=== PATIENT | female | born 1950 | race Caucasian/White ===

== ENCOUNTER 2020-09-01 09:25 | Outpatient (CLI) | payer MEDICARE, OTHER ==
[~2020-09-01] VITALS: Ht 167.6 cm; Wt 120.0 kg
[~2020-09-01 09:25] MED LIST: NO HOME MEDS
[2020-09-01] MEDS ORDERED: nitroGLYCERIN 0.4mg SUBLingual tab SL PRN (10:30)
[2020-09-01] MEDS ORDERED: aminophylline 250mg/10ml inj. IV PRN (10:30)
[2020-09-01] MEDS ORDERED: regadenoson 0.4mg/5ml syringe IV PRN (10:35)
[2020-09-01 12:03] VITALS: BP 121/58
[2020-09-01 12:18] VITALS: BP 96/63
[2020-09-01 12:19] VITALS: BP 97/56
[2020-09-01 12:20] VITALS: BP 111/52
[2020-09-01 12:21] VITALS: BP 127/52
[2020-09-01 12:22] VITALS: BP 113/51
== END 2020-09-01 23:59 | disposition home or self-care (01) ==
LOC: RAD 09:25
PROVIDERS: ATTEND Internal Medicine Interventional Cardiology
DX: I50.22 Chronic systolic (congestive) heart failure (principal); I48.20 Chronic atrial fibrillation, unspecified
CPT/HCPCS: 78452; 93017; A9500; J2785

== ENCOUNTER 2021-05-02 13:12 | Inpatient (IN) | payer MEDICARE, OTHER ==
[~2021-05-02] VITALS: Ht 165.1 cm; Wt 127.3 kg
--- NOTE | 2021-05-02 14:08 | NUR ---
Attempted to call patient's with phone number on file to get last known normal and baseline. Phone does not ring.
[2021-05-02 14:51] LABS: BASOPHILS % (AUTO) 0.9 % (0-1); EOSINOPHILS # (AUTO) 0.1 X10'3 (0-0.9); EOSINOPHILS % (AUTO) 1.8 % (0-6); HEMATOCRIT 37.7 % (35.0-45.0); HEMOGLOBIN 12.3 g/dl (12.0-16.0); LYMPHOCYTES # (AUTO) 0.9 X10'3 (1.1-4.8); LYMPHOCYTES % (AUTO) 23.6 % (21-51); MEAN CORPUSCULAR HEMOGLOBIN 32.1 PG (27.0-31.0); MEAN CORPUSCULAR HGB CONC 32.8 g/dL (33.0-36.5); MEAN CORPUSCULAR VOLUME 97.9 FL (78-98); MEAN PLATELET VOLUME 8.3 FL (7.4-10.4); MONOCYTES # (AUTO) 0.5 X10'3 (0-0.9); MONOCYTES % (AUTO) 11.9 % (2-12); NEUTROPHILS # (AUTO) 2.4 X10'3 (1.8-7.7); NEUTROPHILS % (AUTO) 61.8 % (42-75); PLATELET COUNT 175 X10'3 (140-440); RED BLOOD COUNT 3.85 X10'6 (4.20-5.60); RED CELL DISTRIBUTION WIDTH 16.4 % (11.5-14.5); WHITE BLOOD COUNT 3.9 X10'3 (4.5-11.0)
[2021-05-02 15:13] LABS: ALANINE AMINOTRANSFERASE 23 U/L (12-78); ALBUMIN 3.1 G/DL (3.4-5.0); ALBUMIN/GLOBULIN RATIO 1.1 (1.1-1.5); ALKALINE PHOSPHATASE 92 IU/L (46-116); ANION GAP 9 (8-16); ASPARTATE AMINO TRANSFERASE 26 U/L (10-37); BILIRUBIN,TOTAL 0.9 MG/DL (0.1-1.0); BLOOD UREA NITROGEN 28 MG/DL (7-18); BUN/CREATININE RATIO 19.9 (6.6-38.0); CALCIUM 8.6 MG/DL (8.5-10.1); CHLORIDE 109 MMOL/L (99-107); CREATININE 1.41 MG/DL (0.40-0.90); GLUCOSE 90 MG/DL (70-104); SODIUM 147 MMOL/L (135-145); TOTAL CARBON DIOXIDE 29.5 MMOL/L (24-32); TOTAL PROTEIN 5.8 G/DL (6.4-8.2); eGFR 37 ML/MIN
--- NOTE | 2021-05-02 15:46 | NUR ---
Patient's daughter, Arpita called for update. Arpita states patient has early onset dementia; baseline is communicative, funny, alert, exercises daily, walks without assistance.
[2021-05-02] MEDS ORDERED: normal saline 1000ml 1,000 ML IV ONE (16:10)
[2021-05-02] MEDS ORDERED: METO5TAB7 PO (16:46)
[2021-05-02] MEDS ORDERED: MULT-1085 PO (16:46)
[2021-05-02] MEDS ORDERED: PANT40TA54 PO (16:46)
[2021-05-02] MEDS ORDERED: WARF-55 PO ×2 (16:46)
[2021-05-02] MEDS ORDERED: AMIO200T61 PO (16:46)
[2021-05-02] MEDS ORDERED: CETI-90 PO (16:46)
[2021-05-02] MEDS ORDERED: CARV25TA2 PO (16:46)
[2021-05-02] MEDS ORDERED: METH-797 PO (16:46)
[2021-05-02] MEDS ORDERED: VITA-268 PO (16:46)
[2021-05-02] MEDS ORDERED: CELE-85 PO (16:46)
[2021-05-02] MEDS ORDERED: GABA600T13 PO (16:46)
[2021-05-02] MEDS ORDERED: ATOR20TA66 PO (16:46)
[2021-05-02] MEDS ORDERED: POTA8TAB69 PO (16:46)
[2021-05-02] MEDS ORDERED: CHOL500044 PO (16:46)
--- NOTE | 2021-05-02 17:39 | NUR ---
POISON CONTROL CONTACTED PER DR PETERSEN REQUEST. GABAPENTIN TOXICITY CAN CAUSE SEDATION AND SLURRED SPEECH. DYSTONIA IS CAUSED BY GABAPENTIN WITHDRAWLS.
[2021-05-02] MEDS ORDERED: potassium Cl 20mEq in D5-NS 1,000 ML IV SCH (18:35)
[2021-05-02] MEDS ORDERED: lactulose 20gm/30ml cup PO ONE (18:35)
[2021-05-02] MEDS: enoxaparin 40mg/0.4ml syringe SQ SCH (20:38)
[2021-05-02 20:40] LABS: CLARITY,URINE CLOUDY (Clear); COLOR,URINE YELLOW (Yellow); GLUCOSE, URINE NEGATIVE (Neg); KETONES,URINE NEGATIVE (Neg); LEUKOCYTE ESTERASE ,URINE MODERATE (Neg); NITRITES, URINE NEGATIVE (Neg); OCCULT BLOOD,URINE SMALL (Neg); PROTEIN,URINE TRACE mg/dl (Neg)
[2021-05-02] MEDS ORDERED: levetiracetam inj 1,000 MG in normal saline 100ml IV soln 90 ML IV SCH (20:45)
[2021-05-02] MEDS ORDERED: levetiracetam-NS 1000mg/100ml 100 ML IV ONE (20:50)
[2021-05-02 20:51] LABS: URINE AMPHETAMINE SCREEN NEGATIVE (Neg); URINE BARBITUATE SCREEN NEGATIVE (Neg); URINE BENZODIAZEPINES SCREEN NEGATIVE (Neg); URINE CANNABINOID SCREEN NEGATIVE (Neg); URINE COCAINE SCREEN NEGATIVE (Neg); URINE METHADONE SCREEN NEGATIVE (Neg); URINE OPIATE SCREEN NEGATIVE (Neg); URINE PHENCYCLIDINE SCREEN NEGATIVE (Neg)
[2021-05-02 20:52] LABS: UA COLLECTION TYPE NON-SPECIFIED
[2021-05-02 20:54] LABS: WBC,URINE 50-100 /HPF (0-4)
[2021-05-02 20:55] LABS: BACTERIA,URINE FEW /HPF (Neg); CELLULAR CAST 0-4 /LPF (NEGATIVE); MUCUS STRANDS NONE SEEN /LPF (Neg); RBC,URINE 0-2 /HPF (0-2); SQUAMOUS EPITHELIAL CELL,UR NONE SEEN /LPF (FEW); WBC CLUMPS,URINE MODERATE /HPF (NEGATIVE)
[2021-05-02] MEDS ORDERED: dextrose 5%-normal saline 1,000 ML IV ONE (21:05)
[2021-05-02] MEDS ORDERED: PHENYTOIN SOD IV ONE ×3 (21:30→22:05)
[2021-05-02] MEDS ORDERED: NORMAL SALINE IV ONE ×3 (21:30→22:05)
--- NOTE | 2021-05-02 22:56 | NUR ---
Pt states she was on narcotics for several years and recently stopped taking them with the help of a Dr. Pt has since been taking more gabapentin.
--- NOTE | 2021-05-03 06:39 | NUR ---
pt sleeping at this time.
--- NOTE | 2021-05-03 07:00 | NUR ---
called dr. lovell to give him update on pt and no fluids running. pt confused. new orders: ns at 85cc/hr, blood work including tsh.
[2021-05-03] MEDS ORDERED: normal saline 1000ml 1,000 ML IV SCH (07:10)
--- NOTE | 2021-05-03 07:15 | NUR ---
pt awake confused, hullicanting, trying to get out of bed. states, " the pills are in the medicine cabinet."
[2021-05-03 07:40] LABS: BASOPHILS % (AUTO) 0.7 % (0-1); EOSINOPHILS # (AUTO) 0.1 X10'3 (0-0.9); EOSINOPHILS % (AUTO) 1.7 % (0-6); HEMATOCRIT 39.2 % (35.0-45.0); HEMOGLOBIN 12.8 g/dl (12.0-16.0); MEAN CORPUSCULAR HEMOGLOBIN 32.1 PG (27.0-31.0); MEAN CORPUSCULAR HGB CONC 32.7 g/dL (33.0-36.5); MEAN PLATELET VOLUME 8.5 FL (7.4-10.4); MONOCYTES # (AUTO) 0.6 X10'3 (0-0.9); MONOCYTES % (AUTO) 11.7 % (2-12); NEUTROPHILS # (AUTO) 3.3 X10'3 (1.8-7.7); NEUTROPHILS % (AUTO) 65.9 % (42-75); PLATELET COUNT 166 X10'3 (140-440); RED CELL DISTRIBUTION WIDTH 16.5 % (11.5-14.5)
[2021-05-03] MEDS ORDERED: CefTRIAXone/D5W-Rocephin 1gm 50 ML IV SCH (08:00)
[2021-05-03] MEDS ORDERED: Levetiracetam-NS 500mg/100ml 100 ML IV SCH (08:00)
[2021-05-03 08:03] LABS: ALANINE AMINOTRANSFERASE 23 U/L (12-78); ALBUMIN 3.1 G/DL (3.4-5.0); ALBUMIN/GLOBULIN RATIO 1.2 (1.1-1.5); ALKALINE PHOSPHATASE 91 IU/L (46-116); ANION GAP 11 (8-16); ASPARTATE AMINO TRANSFERASE 22 U/L (10-37); BILIRUBIN,TOTAL 1.1 MG/DL (0.1-1.0); BLOOD UREA NITROGEN 24 MG/DL (7-18); BUN/CREATININE RATIO 20.7 (6.6-38.0); CALCIUM 8.5 MG/DL (8.5-10.1); CHLORIDE 111 MMOL/L (99-107); CREATININE 1.16 MG/DL (0.40-0.90); GLUCOSE 105 MG/DL (70-104); POTASSIUM 3.9 MMOL/L (3.5-5.1); SODIUM 150 MMOL/L (135-145); TOTAL CARBON DIOXIDE 27.8 MMOL/L (24-32); TOTAL PROTEIN 5.7 G/DL (6.4-8.2); eGFR 46 ML/MIN
[2021-05-03 08:11] LABS: PHOSPHORUS 3.3 MG/DL (2.3-4.5)
[2021-05-03] MEDS: Levetiracetam-NS 500mg/100ml 100 ML IV SCH ×2 (08:18→20:07)
--- NOTE | 2021-05-03 09:07 | NUR ---
[facility] [phone]
--- NOTE | 2021-05-03 09:09 | NUR ---
daughter states, pt has 1st stage of dementia.
--- NOTE | 2021-05-03 09:12 | NUR ---
spoke with dr. lovell, new order: 1/2 ns at 85cc/hr. stop ns at 85cc/hr
[2021-05-03] MEDS: sodium chloride 0.45% 1,000 ML IV SCH ×2 (09:33→19:53)
--- NOTE | 2021-05-03 09:45 | NUR ---
DR. RICE AT BEDSIDE. PT MAY GO TO PCU.
--- NOTE | 2021-05-03 09:53 | NUR ---
700cc orangish urine output
--- NOTE | 2021-05-03 11:35 | NUR ---
agustina called. pt talking on the phone with her now.
[2021-05-03 13:15] VITALS: BP 130/84
--- NOTE | 2021-05-03 13:15 | NUR ---
Received patient from ED at 1300. Patient alert, and oriented time 1. No apparent discomfort noted, safety maintained.
[2021-05-03 15:00] VITALS: BP 114/79
[2021-05-03] MEDS ORDERED: labetalol 20mg/4ml (5mg/ml) syringe IV PRN (17:05)
[2021-05-03 18:00] VITALS: BP 139/83
--- NOTE | 2021-05-03 18:08 | NUR ---
Dr. Nguyen , I talked to Dr. Tinajero regarding pt You Tavarez in Rm 3012. He said that he already contacted you about the patient. Please, need to know which hospitalist is in charge of the patient. Pt needs pain meds. Qi/RN [id number]
[2021-05-03] MEDS: acetaminophen 325mg tablet PO PRN (18:27)
--- NOTE | 2021-05-03 18:46 | NUR ---
Patient in room PCU 3012. I have received report from MARJAN Busby and had the opportunity to ask questions and assume patient care. Pt has no IV access, pt pulled IV out, message already sent to Dr. Nguyen, awaiting call back. Pt has order, for IV keppra, iv Anti biotic and IVF.
--- NOTE | 2021-05-03 19:18 | NUR ---
05/03/211917 Note on: DAISY OVALLES, Emerita, daughter called , enquiring about pt's condition, updated on pt's current status , with sitter in room pt. Will call about 10am tomorrow for further updates.
--- NOTE | 2021-05-03 19:45 | NUR ---
New IV 20G, placed to LEJ, by ED RN , patent , flushing well, with good blood return. IVF restarted as per order. Infusing well.
[2021-05-03] MEDS: enoxaparin 40mg/0.4ml syringe SQ SCH (20:07)
--- NOTE | 2021-05-03 20:15 | NUR ---
05/03/212014 Note on: DAISY OVALLES I, Dr. Haas in to see pt, updated on pt's status, no new orders noted. S: O: A: P:
[2021-05-03] MEDS ORDERED: CefTRIAXone/D5W-Rocephin 1gm 100 ML IV SCH (20:42)
[2021-05-03 22:00] VITALS: BP 122/69
[2021-05-04] MEDS: acetaminophen 325mg tablet PO PRN ×2 (00:01→20:16)
--- NOTE | 2021-05-04 00:45 | NUR ---
Pt awake, very restless and agitated, pulled LEJ out Dr. Haas informed, does not want to give any narcotics or sedative, OK to to apply restraints and change IV Keppra to Po if unable to place a new IV. Sitter remains in room with pt.
--- NOTE | 2021-05-04 01:00 | NUR ---
New IV 22G, placed to LW by MARJAN Betancur,PIV flushing well with good blood return. IVF continues per order, Bilat Wrist restrainsts applied. Sitter remains in room with pt.
[2021-05-04 02:00] VITALS: BP 132/82
--- NOTE | 2021-05-04 06:00 | NUR ---
Pt refused 0600 vitals.
--- NOTE | 2021-05-04 06:38 | NUR ---
Problems reprioritized. Patient report given, questions answered & plan of care reviewed with elian Mahmood..
--- NOTE | 2021-05-04 07:11 | NUR ---
Patient in room PCU 3012. I have received report from Angela Cao and had the opportunity to ask questions and assume patient care.
[2021-05-04] MEDS ORDERED: lactulose 20gm/30ml cup PO SCH (08:00)
[2021-05-04] MEDS: sodium chloride 0.45% 1,000 ML IV SCH (08:39)
[2021-05-04] MEDS: Levetiracetam-NS 500mg/100ml 100 ML IV SCH ×2 (08:39→20:12)
[2021-05-04] MEDS ORDERED: METHOCARBAMOL PO PRN (09:05)
[2021-05-04] MEDS ORDERED: amiodarone 200mg tablet PO ONE (09:05)
[2021-05-04] MEDS ORDERED: carVEDilol 12.5mg tablet PO ONE (09:05)
[2021-05-04] MEDS ORDERED: [UNRECOGNIZED DRUG - OTHER] PO PRN (09:05)
[2021-05-04] MEDS ORDERED: AMIO200T27 PO (10:49)
[2021-05-04 11:00] VITALS: BP 134/82
[2021-05-04 11:08] LABS: BASOPHILS % (AUTO) 0.7 % (0-1); EOSINOPHILS # (AUTO) 0.1 X10'3 (0-0.9); EOSINOPHILS % (AUTO) 1.2 % (0-6); HEMATOCRIT 36.1 % (35.0-45.0); LYMPHOCYTES # (AUTO) 0.8 X10'3 (1.1-4.8); MEAN CORPUSCULAR HEMOGLOBIN 32.2 PG (27.0-31.0); MEAN CORPUSCULAR HGB CONC 33.1 g/dL (33.0-36.5); MEAN CORPUSCULAR VOLUME 97.1 FL (78-98); MEAN PLATELET VOLUME 8.6 FL (7.4-10.4); MONOCYTES # (AUTO) 0.6 X10'3 (0-0.9); MONOCYTES % (AUTO) 12.5 % (2-12); NEUTROPHILS # (AUTO) 3.1 X10'3 (1.8-7.7); NEUTROPHILS % (AUTO) 68.6 % (42-75); PLATELET COUNT 133 X10'3 (140-440); RED BLOOD COUNT 3.72 X10'6 (4.20-5.60); RED CELL DISTRIBUTION WIDTH 15.7 % (11.5-14.5); WHITE BLOOD COUNT 4.6 X10'3 (4.5-11.0)
--- NOTE | 2021-05-04 12:05 | NUR ---
Critical INR of 4.8 reported to . Patient is on coumadin.
[2021-05-04] MEDS: gabapentin 300mg capsule PO SCH ×2 (12:20→21:33)
[2021-05-04] MEDS ORDERED: amiodarone 200mg tablet PO SCH (13:00)
[2021-05-04] MEDS: amiodarone 200mg tablet PO SCH ×2 (13:00→21:33)
--- NOTE | 2021-05-04 13:00 | NUR ---
Amiodorone administered at 1220. Non administered next dose at 1300.
[2021-05-04] MEDS: dextrose 5%-water 1,000 ML IV SCH ×2 (13:27→19:00)
[2021-05-04 15:00] VITALS: BP 106/72
[2021-05-04 18:00] VITALS: BP 125/80
[2021-05-04] MEDS: carVEDilol 12.5mg tablet PO SCH (20:12)
[2021-05-04] MEDS: enoxaparin 40mg/0.4ml syringe SQ SCH (20:13)
[2021-05-04] MEDS: lactulose 20gm/30ml cup PO SCH (20:14)
[2021-05-04] MEDS ORDERED: warfarin 3mg tablet PO ONE (21:00)
[2021-05-05] MEDS: dextrose 5%-water 1,000 ML IV SCH ×2 (05:00→13:24)
[2021-05-05 06:00] VITALS: BP 103/58
--- NOTE | 2021-05-05 06:33 | NUR ---
Problems reprioritized. Patient report given, questions answered & plan of care reviewed with DEMI..
[2021-05-05 06:35] LABS: BASOPHILS % (AUTO) 0.9 % (0-1); EOSINOPHILS # (AUTO) 0.1 X10'3 (0-0.9); EOSINOPHILS % (AUTO) 3.2 % (0-6); HEMATOCRIT 35.5 % (35.0-45.0); HEMOGLOBIN 11.8 g/dl (12.0-16.0); MEAN CORPUSCULAR HEMOGLOBIN 32.1 PG (27.0-31.0); MEAN CORPUSCULAR HGB CONC 33.2 g/dL (33.0-36.5); MEAN CORPUSCULAR VOLUME 96.8 FL (78-98); MEAN PLATELET VOLUME 8.7 FL (7.4-10.4); MONOCYTES # (AUTO) 0.6 X10'3 (0-0.9); MONOCYTES % (AUTO) 14.8 % (2-12); NEUTROPHILS % (AUTO) 54.1 % (42-75); PLATELET COUNT 128 X10'3 (140-440); RED BLOOD COUNT 3.67 X10'6 (4.20-5.60); RED CELL DISTRIBUTION WIDTH 15.9 % (11.5-14.5); WHITE BLOOD COUNT 3.8 X10'3 (4.5-11.0)
[2021-05-05] MEDS: CHOLECALCIFEROL PO SCH (08:00)
[2021-05-05] MEDS: multivitamins, therapeutics tablet PO SCH (08:00)
[2021-05-05] MEDS: VITAMIN B COMPLEX TAB PO SCH (08:00)
[2021-05-05] MEDS: [UNRECOGNIZED DRUG - OTHER] PO SCH (08:00)
[2021-05-05] MEDS: pantoprazole 40mg Tablet.DR PO SCH (08:00)
[2021-05-05] MEDS: lactulose 20gm/30ml cup PO SCH ×2 (08:03→21:05)
[2021-05-05] MEDS: gabapentin 300mg capsule PO SCH ×3 (08:07→21:20)
[2021-05-05] MEDS: atorvastatin 20mg tablet PO SCH (08:08)
[2021-05-05] MEDS: metolazone 2.5mg tablet PO SCH (08:08)
[2021-05-05] MEDS: amiodarone 200mg tablet PO SCH ×3 (08:08→21:04)
[2021-05-05] MEDS: cetirizine 10mg tablet PO SCH (08:09)
[2021-05-05] MEDS: carVEDilol 12.5mg tablet PO SCH ×2 (08:10→21:04)
[2021-05-05] MEDS: acetaminophen 325mg tablet PO PRN ×2 (08:10→21:28)
[2021-05-05] MEDS: CefTRIAXone/D5W-Rocephin 1gm 50 ML IV SCH (08:18)
[2021-05-05] MEDS: Levetiracetam-NS 500mg/100ml 100 ML IV SCH ×2 (08:56→21:21)
[2021-05-05 10:22] LABS: CHLORIDE 108 MMOL/L (99-107); POTASSIUM 3.5 MMOL/L (3.5-5.1); SODIUM 147 MMOL/L (135-145)
[2021-05-05 10:36] LABS: ALANINE AMINOTRANSFERASE 22 U/L (12-78); ALKALINE PHOSPHATASE 92 IU/L (46-116); ANION GAP 11 (8-16); ASPARTATE AMINO TRANSFERASE 38 U/L (10-37); BILIRUBIN,TOTAL 0.8 MG/DL (0.1-1.0); BLOOD UREA NITROGEN 13 MG/DL (7-18); BUN/CREATININE RATIO 11.4 (6.6-38.0); CALCIUM 7.6 MG/DL (8.5-10.1); CREATININE 1.14 MG/DL (0.40-0.90); GLUCOSE 99 MG/DL (70-104); TOTAL CARBON DIOXIDE 28.2 MMOL/L (24-32); TOTAL PROTEIN 5.7 G/DL (6.4-8.2); eGFR 47 ML/MIN
[2021-05-05 10:43] LABS: ALBUMIN 2.9 G/DL (3.4-5.0)
[2021-05-05 11:00] VITALS: BP 125/64
[2021-05-05 15:00] VITALS: BP 100/64
[2021-05-05] MEDS: HYDROcodone/acetaminophen 5mg/325mg tablet PO PRN (16:29)
[2021-05-05 18:00] VITALS: BP 115/65
[2021-05-05 22:00] VITALS: BP 109/69
[2021-05-06] VITALS (7 sets, daily range): BP systolic 81–116; BP diastolic 51–73
[2021-05-06] MEDS: dextrose 5%-water 1,000 ML IV SCH ×3 (01:00→21:58)
[2021-05-06 06:59] LABS: BASOPHILS % (AUTO) 0.8 % (0-1); EOSINOPHILS # (AUTO) 0.2 X10'3 (0-0.9); EOSINOPHILS % (AUTO) 4.3 % (0-6); HEMATOCRIT 36.7 % (35.0-45.0); HEMOGLOBIN 12.2 g/dl (12.0-16.0); LYMPHOCYTES % (AUTO) 26.2 % (21-51); MEAN CORPUSCULAR HEMOGLOBIN 32.2 PG (27.0-31.0); MEAN CORPUSCULAR HGB CONC 33.1 g/dL (33.0-36.5); MEAN CORPUSCULAR VOLUME 97.1 FL (78-98); MEAN PLATELET VOLUME 9.4 FL (7.4-10.4); MONOCYTES # (AUTO) 0.6 X10'3 (0-0.9); MONOCYTES % (AUTO) 14.8 % (2-12); NEUTROPHILS % (AUTO) 53.9 % (42-75); PLATELET COUNT 138 X10'3 (140-440); RED BLOOD COUNT 3.78 X10'6 (4.20-5.60); RED CELL DISTRIBUTION WIDTH 16.1 % (11.5-14.5); WHITE BLOOD COUNT 3.7 X10'3 (4.5-11.0)
[2021-05-06 07:15] LABS: ALANINE AMINOTRANSFERASE 23 U/L (12-78); ALBUMIN 2.7 G/DL (3.4-5.0); ALBUMIN/GLOBULIN RATIO 1.1 (1.1-1.5); ALKALINE PHOSPHATASE 85 IU/L (46-116); ANION GAP 8 (8-16); ASPARTATE AMINO TRANSFERASE 47 U/L (10-37); BILIRUBIN,TOTAL 0.6 MG/DL (0.1-1.0); BLOOD UREA NITROGEN 16 MG/DL (7-18); BUN/CREATININE RATIO 14.7 (6.6-38.0); CALCIUM 7.9 MG/DL (8.5-10.1); CHLORIDE 109 MMOL/L (99-107); CREATININE 1.09 MG/DL (0.40-0.90); GLUCOSE 82 MG/DL (70-104); POTASSIUM 3.3 MMOL/L (3.5-5.1); SODIUM 147 MMOL/L (135-145); TOTAL CARBON DIOXIDE 29.7 MMOL/L (24-32); TOTAL PROTEIN 5.2 G/DL (6.4-8.2); eGFR 49 ML/MIN
[2021-05-06] MEDS: [UNRECOGNIZED DRUG - OTHER] PO SCH (08:00)
[2021-05-06] MEDS: VITAMIN B COMPLEX TAB PO SCH (08:00)
[2021-05-06] MEDS: CHOLECALCIFEROL PO SCH (08:00)
[2021-05-06] MEDS ORDERED: phytonadione inj. 5 MG in normal saline 100ml IV soln 100 ML IV ONE (08:35)
[2021-05-06] MEDS: lactulose 20gm/30ml cup PO SCH ×2 (09:03→19:47)
[2021-05-06] MEDS: gabapentin 300mg capsule PO SCH ×2 (09:07→14:38)
[2021-05-06] MEDS: carVEDilol 12.5mg tablet PO SCH ×3 (09:08→20:00)
[2021-05-06] MEDS: pantoprazole 40mg Tablet.DR PO SCH (09:08)
[2021-05-06] MEDS: amiodarone 200mg tablet PO SCH ×3 (09:09→21:00)
[2021-05-06] MEDS: multivitamins, therapeutics tablet PO SCH (09:09)
[2021-05-06] MEDS: cetirizine 10mg tablet PO SCH (09:09)
[2021-05-06] MEDS: HYDROcodone/acetaminophen 5mg/325mg tablet PO PRN (09:10)
[2021-05-06] MEDS: metolazone 2.5mg tablet PO SCH (09:11)
[2021-05-06] MEDS: atorvastatin 20mg tablet PO SCH (09:11)
[2021-05-06] MEDS: CefTRIAXone/D5W-Rocephin 1gm 50 ML IV SCH (09:12)
[2021-05-06] MEDS ORDERED: potassium CL 10mEq/100ml bag 100 ML IV PRN (10:25)
[2021-05-06] MEDS ORDERED: potassium Cl 20 mEq SR tablet PO PRN ×2 (10:25)
[2021-05-06] MEDS ORDERED: magnesium 4gm in 100ml NS 100 ML IV PRN (10:25)
[2021-05-06] MEDS ORDERED: magnesium 2GM in 50ml NS 50 ML IV PRN (10:25)
[2021-05-06] MEDS: Levetiracetam-NS 500mg/100ml 100 ML IV SCH ×2 (10:49→19:47)
[2021-05-06] MEDS ORDERED: meclizine 12.5mg tablet PO PRN (11:05)
--- NOTE | 2021-05-06 11:16 | NUR ---
Initial: Pt presented with ALOC, admitted for hepatic encephalopathy, currently A/O x 1 per physical assessment. Pt initially NPO though diet was advanced to heart healthy 05/05. Pt documented with 50% PO intake first meal up to 75% PO intake at two following meals. Pending documentation of PO intake for today. Noted pt with an elevated serum Na, currently receiving D5 at 100 mL/hr which provides 408 kcal/day. LBM 05/05, receiving routine bowel care. No nutrition intervention implemented at this time. Will continue to follow and make recommendations as appropriate pending further trends in PO intake. Recommendations: 1) Liberalize to regular diet with physician approval 2) Routine bowel care 3) Scaled weight this admit; weekly scaled weights thereafter Addendum: 05/06/21 at [address] Amended: Links added.
[2021-05-06] MEDS: K and/or MAG REPLACEMENT MC SCH ×2 (14:28→19:51)
[2021-05-07 02:00] VITALS: BP 108/82
[2021-05-07] MEDS: HYDROcodone/acetaminophen 5mg/325mg tablet PO PRN ×2 (03:33→16:04)
[2021-05-07 06:00] VITALS: BP 100/48
--- NOTE | 2021-05-07 06:10 | NUR ---
Problems reprioritized. Patient report given, questions answered & plan of care reviewed with MARJAN Dia.
[2021-05-07] MEDS: K and/or MAG REPLACEMENT MC SCH ×2 (08:00→20:00)
[2021-05-07] MEDS: [UNRECOGNIZED DRUG - OTHER] PO SCH (08:00)
[2021-05-07] MEDS: VITAMIN B COMPLEX TAB PO SCH (08:00)
[2021-05-07] MEDS: CHOLECALCIFEROL PO SCH (08:00)
[2021-05-07 08:10] LABS: BASOPHILS % (AUTO) 0.8 % (0-1); EOSINOPHILS # (AUTO) 0.2 X10'3 (0-0.9); EOSINOPHILS % (AUTO) 4.5 % (0-6); HEMATOCRIT 37.2 % (35.0-45.0); HEMOGLOBIN 12.4 g/dl (12.0-16.0); LYMPHOCYTES # (AUTO) 0.9 X10'3 (1.1-4.8); LYMPHOCYTES % (AUTO) 21.5 % (21-51); MEAN CORPUSCULAR HEMOGLOBIN 32.4 PG (27.0-31.0); MEAN CORPUSCULAR HGB CONC 33.3 g/dL (33.0-36.5); MEAN CORPUSCULAR VOLUME 97.2 FL (78-98); MEAN PLATELET VOLUME 9.4 FL (7.4-10.4); MONOCYTES # (AUTO) 0.7 X10'3 (0-0.9); MONOCYTES % (AUTO) 16.2 % (2-12); NEUTROPHILS # (AUTO) 2.5 X10'3 (1.8-7.7); PLATELET COUNT 151 X10'3 (140-440); RED BLOOD COUNT 3.83 X10'6 (4.20-5.60); RED CELL DISTRIBUTION WIDTH 16.3 % (11.5-14.5); WHITE BLOOD COUNT 4.4 X10'3 (4.5-11.0)
[2021-05-07 08:45] LABS: MAGNESIUM 1.6 MG/DL (1.5-2.4); POTASSIUM 3.8 MMOL/L (3.5-5.1)
[2021-05-07] MEDS: lactulose 20gm/30ml cup PO SCH (09:42)
[2021-05-07] MEDS: atorvastatin 20mg tablet PO SCH (09:42)
[2021-05-07] MEDS: Levetiracetam-NS 500mg/100ml 100 ML IV SCH ×2 (09:42→21:56)
[2021-05-07] MEDS: CefTRIAXone/D5W-Rocephin 1gm 50 ML IV SCH (09:42)
[2021-05-07] MEDS: cetirizine 10mg tablet PO SCH (09:42)
[2021-05-07] MEDS: pantoprazole 40mg Tablet.DR PO SCH (09:42)
[2021-05-07] MEDS: multivitamins, therapeutics tablet PO SCH (09:43)
[2021-05-07] MEDS: gabapentin 300mg capsule PO SCH ×2 (09:43→20:20)
[2021-05-07] MEDS: carVEDilol 12.5mg tablet PO SCH ×2 (09:54→20:00)
[2021-05-07] MEDS: amiodarone 200mg tablet PO SCH ×3 (09:55→20:21)
[2021-05-07 10:00] VITALS: BP 102/66
[2021-05-07] MEDS: metolazone 2.5mg tablet PO SCH (10:25)
[2021-05-07 15:00] VITALS: BP 99/57
[2021-05-07 18:00] VITALS: BP 109/52
--- NOTE | 2021-05-07 18:24 | NUR ---
Patient in room PCU 3017. I have received report from MARJAN Dia and had the opportunity to ask questions and assume patient care.
--- NOTE | 2021-05-07 18:24 | NUR ---
Patient in room PCU 3017. I have received report from MARJAN Dia and had the opportunity to ask questions and assume patient care.
[2021-05-07] MEDS: apixaban 5mg tablet PO SCH (20:21)
[2021-05-07] MEDS ORDERED: warfarin 1mg tablet PO ONE (21:00)
[2021-05-07] MEDS ORDERED: levetiracetam 250mg tablet PO ONE (22:45)
[2021-05-07] MEDS: dextrose 5%-water 1,000 ML IV SCH (22:47)
--- NOTE | 2021-05-07 22:53 | NUR ---
Patients IV infiltrated and ,multiple attempts have been made to place a new IV without success. Dr Haas was made aware and gave orders for PO Kepprato be given in place of IV.
[2021-05-07 23:21] VITALS: BP 122/70
[2021-05-08 02:00] VITALS: BP 114/55
[2021-05-08] MEDS: dextrose 5%-water 1,000 ML IV SCH ×3 (03:00→17:22)
[2021-05-08] MEDS: HYDROcodone/acetaminophen 10/325mg tab PO PRN ×2 (05:40→21:34)
[2021-05-08 06:00] VITALS: BP 99/50
--- NOTE | 2021-05-08 06:28 | NUR ---
Problems reprioritized. Patient report given, questions answered & plan of care reviewed with MARJAN Prieto.
--- NOTE | 2021-05-08 06:29 | NUR ---
Patient in room PCU 3017. I have received report from MARJAN Prieto and had the opportunity to ask questions and assume patient care.
[2021-05-08] MEDS ORDERED: cyclobenzaprine 10mg tablet PO PRN (06:55)
[2021-05-08 06:59] LABS: EOSINOPHILS # (AUTO) 0.2 X10'3 (0-0.9); EOSINOPHILS % (AUTO) 4.5 % (0-6); HEMATOCRIT 35.4 % (35.0-45.0); LYMPHOCYTES # (AUTO) 1.1 X10'3 (1.1-4.8); MEAN CORPUSCULAR HEMOGLOBIN 32.8 PG (27.0-31.0); MEAN CORPUSCULAR HGB CONC 33.8 g/dL (33.0-36.5); MEAN CORPUSCULAR VOLUME 97.1 FL (78-98); MONOCYTES # (AUTO) 0.7 X10'3 (0-0.9); MONOCYTES % (AUTO) 15.9 % (2-12); NEUTROPHILS # (AUTO) 2.2 X10'3 (1.8-7.7); NEUTROPHILS % (AUTO) 52.6 % (42-75); PLATELET COUNT 147 X10'3 (140-440); RED BLOOD COUNT 3.65 X10'6 (4.20-5.60); WHITE BLOOD COUNT 4.3 X10'3 (4.5-11.0)
[2021-05-08] MEDS: CefTRIAXone/D5W-Rocephin 1gm 50 ML IV SCH (07:35)
[2021-05-08] MEDS: cholecalciferol (vitamin D3) 1,000 unit (25mcg) tablet PO SCH (07:36)
[2021-05-08] MEDS: multivitamins, therapeutics tablet PO SCH (07:36)
[2021-05-08] MEDS: amiodarone 200mg tablet PO SCH ×3 (07:39→19:35)
[2021-05-08] MEDS: atorvastatin 20mg tablet PO SCH (07:39)
[2021-05-08] MEDS: vitamin B comp w/Vit. C tab 1 TAB TABLET PO SCH (07:39)
[2021-05-08] MEDS: pantoprazole 40mg Tablet.DR PO SCH (07:39)
[2021-05-08] MEDS: apixaban 5mg tablet PO SCH ×2 (07:39→19:35)
[2021-05-08] MEDS: metolazone 2.5mg tablet PO SCH (07:39)
[2021-05-08] MEDS: cetirizine 10mg tablet PO SCH (07:40)
[2021-05-08] MEDS: gabapentin 300mg capsule PO SCH ×2 (07:40→19:35)
[2021-05-08] MEDS: carVEDilol 12.5mg tablet PO SCH ×2 (07:40→19:35)
[2021-05-08 07:46] LABS: ALANINE AMINOTRANSFERASE 23 U/L (12-78); ALBUMIN 2.8 G/DL (3.4-5.0); ALKALINE PHOSPHATASE 89 IU/L (46-116); ANION GAP 10 (8-16); ASPARTATE AMINO TRANSFERASE 28 U/L (10-37); BILIRUBIN,TOTAL 0.7 MG/DL (0.1-1.0); BLOOD UREA NITROGEN 17 MG/DL (7-18); BUN/CREATININE RATIO 17.7 (6.6-38.0); CALCIUM 8.9 MG/DL (8.5-10.1); CHLORIDE 108 MMOL/L (99-107); CREATININE 0.96 MG/DL (0.40-0.90); GLUCOSE 73 MG/DL (70-104); MAGNESIUM 1.4 MG/DL (1.5-2.4); POTASSIUM 3.5 MMOL/L (3.5-5.1); SODIUM 148 MMOL/L (135-145); TOTAL CARBON DIOXIDE 29.9 MMOL/L (24-32); TOTAL PROTEIN 5.5 G/DL (6.4-8.2); eGFR 57 ML/MIN
[2021-05-08] MEDS ORDERED: levetiracetam 250mg tablet PO SCH (08:00)
[2021-05-08] MEDS: K and/or MAG REPLACEMENT MC SCH ×2 (08:00→20:00)
[2021-05-08] MEDS ORDERED: lactulose 20gm/30ml cup PO SCH (08:00)
[2021-05-08 11:00] VITALS: BP 98/58
--- NOTE | 2021-05-08 12:18 | NUR ---
paged MRI that pacemaker info was faxed to them to confirm if patient's pacemaker is MRI conditional / compatible. will continue to monitor.
[2021-05-08] MEDS: acetaminophen 325mg tablet PO PRN ×2 (12:57→19:38)
--- NOTE | 2021-05-08 13:07 | NUR ---
requested MRI staff to measure patient if she will fit the hospital's MRI tube. measurement said that patient is 2 1/2 inches wide from elbow to elbow even if she had the patient in a squeezed position. Patient will not be able to fit in the MRI tube as per the measurement done by the MRI staff.
--- NOTE | 2021-05-08 13:10 | NUR ---
made aware of patient 's measurement done by MRI staff that she is too wide to fit in the MRI tube.. Message: [id number]: doc, she measured the patient and she is 2.5 inches wide from elbow to elbow, and the MRI table wont move if we try as per MRI staff.
[2021-05-08] MEDS: magnesium Cl slow-release 64mg tablet PO PRN ×2 (13:46→17:22)
[2021-05-08 15:00] VITALS: BP 94/52
[2021-05-08] MEDS: lactulose 20gm/30ml cup PO SCH (17:22)
[2021-05-08] MEDS: HYDROcodone/acetaminophen 5mg/325mg tablet PO PRN (17:28)
--- NOTE | 2021-05-08 18:32 | NUR ---
Problems reprioritized. Patient report given, questions answered & plan of care reviewed with Melissa PHILLIP.
[2021-05-08] MEDS: levetiracetam 250mg tablet PO SCH (19:35)
[2021-05-09] VITALS (7 sets, daily range): BP systolic 88–106; BP diastolic 47–76
[2021-05-09] MEDS: dextrose 5%-water 1,000 ML IV SCH ×2 (05:00→17:47)
[2021-05-09 06:23] LABS: BASOPHILS % (AUTO) 1.2 % (0-1); EOSINOPHILS # (AUTO) 0.2 X10'3 (0-0.9); EOSINOPHILS % (AUTO) 5.2 % (0-6); HEMATOCRIT 36.4 % (35.0-45.0); HEMOGLOBIN 12.1 g/dl (12.0-16.0); LYMPHOCYTES # (AUTO) 1.1 X10'3 (1.1-4.8); LYMPHOCYTES % (AUTO) 32.9 % (21-51); MEAN CORPUSCULAR HEMOGLOBIN 32.3 PG (27.0-31.0); MEAN CORPUSCULAR HGB CONC 33.1 g/dL (33.0-36.5); MEAN CORPUSCULAR VOLUME 97.7 FL (78-98); MONOCYTES # (AUTO) 0.5 X10'3 (0-0.9); MONOCYTES % (AUTO) 15.3 % (2-12); NEUTROPHILS # (AUTO) 1.5 X10'3 (1.8-7.7); NEUTROPHILS % (AUTO) 45.4 % (42-75); PLATELET COUNT 148 X10'3 (140-440); RED BLOOD COUNT 3.73 X10'6 (4.20-5.60); RED CELL DISTRIBUTION WIDTH 16.7 % (11.5-14.5); WHITE BLOOD COUNT 3.3 X10'3 (4.5-11.0)
--- NOTE | 2021-05-09 06:53 | NUR ---
Patient in room PCU 3017. I have received report from Melissa King and had the opportunity to ask questions and assume patient care.
[2021-05-09 07:20] LABS: ALANINE AMINOTRANSFERASE 22 U/L (12-78); ALBUMIN 2.8 G/DL (3.4-5.0); ALBUMIN/GLOBULIN RATIO 1.1 (1.1-1.5); ALKALINE PHOSPHATASE 90 IU/L (46-116); ANION GAP 8 (8-16); ASPARTATE AMINO TRANSFERASE 25 U/L (10-37); BILIRUBIN,TOTAL 0.5 MG/DL (0.1-1.0); BLOOD UREA NITROGEN 15 MG/DL (7-18); BUN/CREATININE RATIO 14.9 (6.6-38.0); CALCIUM 8.8 MG/DL (8.5-10.1); CHLORIDE 107 MMOL/L (99-107); CREATININE 1.01 MG/DL (0.40-0.90); GLUCOSE 77 MG/DL (70-104); MAGNESIUM 1.5 MG/DL (1.5-2.4); POTASSIUM 3.6 MMOL/L (3.5-5.1); SODIUM 146 MMOL/L (135-145); TOTAL CARBON DIOXIDE 31.4 MMOL/L (24-32); TOTAL PROTEIN 5.4 G/DL (6.4-8.2); eGFR 54 ML/MIN
[2021-05-09] MEDS: K and/or MAG REPLACEMENT MC SCH ×2 (08:00→20:00)
[2021-05-09] MEDS: carVEDilol 12.5mg tablet PO SCH ×2 (08:00→20:00)
[2021-05-09] MEDS: cholecalciferol (vitamin D3) 1,000 unit (25mcg) tablet PO SCH (08:12)
[2021-05-09] MEDS: CefTRIAXone/D5W-Rocephin 1gm 50 ML IV SCH (08:12)
[2021-05-09] MEDS: lactulose 20gm/30ml cup PO SCH ×3 (08:12→17:41)
[2021-05-09] MEDS: pantoprazole 40mg Tablet.DR PO SCH (08:13)
[2021-05-09] MEDS: multivitamins, therapeutics tablet PO SCH (08:13)
[2021-05-09] MEDS: atorvastatin 20mg tablet PO SCH (08:13)
[2021-05-09] MEDS: metolazone 2.5mg tablet PO SCH (08:13)
[2021-05-09] MEDS: vitamin B comp w/Vit. C tab 1 TAB TABLET PO SCH (08:13)
[2021-05-09] MEDS: apixaban 5mg tablet PO SCH ×2 (08:13→20:28)
[2021-05-09] MEDS: cetirizine 10mg tablet PO SCH (08:13)
[2021-05-09] MEDS: levetiracetam 250mg tablet PO SCH ×2 (08:13→20:28)
[2021-05-09] MEDS: gabapentin 300mg capsule PO SCH ×2 (08:14→20:26)
[2021-05-09] MEDS: amiodarone 200mg tablet PO SCH ×3 (08:14→20:28)
[2021-05-09] MEDS: HYDROcodone/acetaminophen 5mg/325mg tablet PO PRN (10:09)
[2021-05-09] MEDS: acetaminophen 325mg tablet PO PRN (14:15)
--- NOTE | 2021-05-09 18:37 | NUR ---
Problems reprioritized. Patient report given, questions answered & plan of care reviewed with Jayla PHILLIP.
--- NOTE | 2021-05-09 18:57 | NUR ---
Patient in room PCU 3017. I have received report from Susana PHILLIP and had the opportunity to ask questions and assume patient care.
--- NOTE | 2021-05-09 19:00 | NUR ---
Per Dr. Nguyen, order a new Tele Neuro consult, the patient has a new infarct and he is looking for recommendations. I am to let them know a MRI is not possible due to her size.
[2021-05-10 02:00] VITALS: BP 95/59
[2021-05-10] MEDS: dextrose 5%-water 1,000 ML IV SCH (03:52)
[2021-05-10] MEDS: HYDROcodone/acetaminophen 10/325mg tab PO PRN ×2 (04:32→19:59)
[2021-05-10 06:00] VITALS: BP 105/55
--- NOTE | 2021-05-10 06:23 | NUR ---
Patient in room PCU 3017. I have received report from Jayla PHILLIP and had the opportunity to ask questions and assume patient care.
--- NOTE | 2021-05-10 06:23 | NUR ---
Problems reprioritized. Patient report given, questions answered & plan of care reviewed with Susana PHILLIP.
[2021-05-10 06:50] LABS: EOSINOPHILS # (AUTO) 0.2 X10'3 (0-0.9); EOSINOPHILS % (AUTO) 4.4 % (0-6); HEMATOCRIT 35.6 % (35.0-45.0); HEMOGLOBIN 11.7 g/dl (12.0-16.0); LYMPHOCYTES # (AUTO) 1.2 X10'3 (1.1-4.8); MEAN CORPUSCULAR HEMOGLOBIN 32.4 PG (27.0-31.0); MEAN CORPUSCULAR VOLUME 98.1 FL (78-98); MEAN PLATELET VOLUME 9.1 FL (7.4-10.4); MONOCYTES # (AUTO) 0.6 X10'3 (0-0.9); MONOCYTES % (AUTO) 15.2 % (2-12); NEUTROPHILS # (AUTO) 1.8 X10'3 (1.8-7.7); NEUTROPHILS % (AUTO) 47.4 % (42-75); PLATELET COUNT 153 X10'3 (140-440); RED BLOOD COUNT 3.62 X10'6 (4.20-5.60); RED CELL DISTRIBUTION WIDTH 16.4 % (11.5-14.5); WHITE BLOOD COUNT 3.7 X10'3 (4.5-11.0)
[2021-05-10 07:01] LABS: ALBUMIN 2.7 G/DL (3.4-5.0); ALKALINE PHOSPHATASE 92 IU/L (46-116); ANION GAP 6 (8-16); ASPARTATE AMINO TRANSFERASE 25 U/L (10-37); BILIRUBIN,TOTAL 0.5 MG/DL (0.1-1.0); BLOOD UREA NITROGEN 14 MG/DL (7-18); BUN/CREATININE RATIO 13.2 (6.6-38.0); CALCIUM 8.8 MG/DL (8.5-10.1); CHLORIDE 105 MMOL/L (99-107); CREATININE 1.06 MG/DL (0.40-0.90); GLUCOSE 80 MG/DL (70-104); MAGNESIUM 1.4 MG/DL (1.5-2.4); POTASSIUM 3.4 MMOL/L (3.5-5.1); SODIUM 144 MMOL/L (135-145); TOTAL CARBON DIOXIDE 32.7 MMOL/L (24-32); TOTAL PROTEIN 5.3 G/DL (6.4-8.2); eGFR 51 ML/MIN
[2021-05-10 07:13] LABS: ALANINE AMINOTRANSFERASE 22 U/L (12-78)
[2021-05-10] MEDS ORDERED: magnesium 4gm in 100ml NS 100 ML IV PRN (07:20)
[2021-05-10] MEDS ORDERED: potassium Cl 20 mEq SR tablet PO PRN (07:20)
[2021-05-10] MEDS: cholecalciferol (vitamin D3) 1,000 unit (25mcg) tablet PO SCH (07:24)
[2021-05-10] MEDS: lactulose 20gm/30ml cup PO SCH ×3 (07:24→16:36)
[2021-05-10] MEDS: CefTRIAXone/D5W-Rocephin 1gm 50 ML IV SCH (07:24)
[2021-05-10] MEDS: vitamin B comp w/Vit. C tab 1 TAB TABLET PO SCH (07:24)
[2021-05-10] MEDS: amiodarone 200mg tablet PO SCH ×3 (07:24→19:59)
[2021-05-10] MEDS: cetirizine 10mg tablet PO SCH (07:25)
[2021-05-10] MEDS: atorvastatin 20mg tablet PO SCH ×2 (07:25→10:35)
[2021-05-10] MEDS: carVEDilol 12.5mg tablet PO SCH ×2 (07:25→20:00)
[2021-05-10] MEDS: metolazone 2.5mg tablet PO SCH (07:25)
[2021-05-10] MEDS: pantoprazole 40mg Tablet.DR PO SCH (07:25)
[2021-05-10] MEDS: gabapentin 300mg capsule PO SCH ×2 (07:25→19:58)
[2021-05-10] MEDS: apixaban 5mg tablet PO SCH ×2 (07:25→19:59)
[2021-05-10] MEDS: multivitamins, therapeutics tablet PO SCH (07:25)
[2021-05-10] MEDS: levetiracetam 250mg tablet PO SCH ×2 (07:25→19:58)
[2021-05-10] MEDS: acetaminophen 325mg tablet PO PRN ×2 (07:26→16:41)
[2021-05-10] MEDS: K and/or MAG REPLACEMENT MC SCH ×2 (08:00→20:00)
[2021-05-10] MEDS: magnesium Cl slow-release 64mg tablet PO PRN ×2 (08:38→16:36)
[2021-05-10] MEDS: potassium Cl 20 mEq SR tablet PO PRN ×3 (08:38→16:36)
[2021-05-10 11:00] VITALS: BP 107/45
[2021-05-10 11:21] LABS: CHOL/HDL RATIO 3.1 (0.00-4.99); CHOLESTEROL 128 MG/DL (0-200); HDL CHOLESTEROL 41 MG/DL (35-60); LDL CHOLESTEROL 76 MG/DL (50-100); TRIGLYCERIDES 56 MG/DL (20-135)
[2021-05-10 11:22] LABS: HEMOGLOBIN A1C 5.6 % (4.5-6.2)
[2021-05-10] MEDS ORDERED: atorvastatin 20mg tablet PO SCH (12:30)
[2021-05-10 15:00] VITALS: BP 102/61
[2021-05-10 18:00] VITALS: BP 126/75
--- NOTE | 2021-05-10 18:18 | NUR ---
Problems reprioritized. Patient report given, questions answered & plan of care reviewed with Jayla PHILLIP.
[2021-05-10 22:00] VITALS: BP 105/56
[2021-05-11] VITALS (8 sets, daily range): BP systolic 88–107; BP diastolic 44–77
[2021-05-11] MEDS: lactulose 20gm/30ml cup PO SCH ×4 (00:01→20:33)
[2021-05-11] MEDS: HYDROcodone/acetaminophen 10/325mg tab PO PRN ×3 (00:18→20:33)
--- NOTE | 2021-05-11 06:35 | NUR ---
Problems reprioritized. Patient report given, questions answered & plan of care reviewed with Susana PHILLIP.
[2021-05-11 06:38] LABS: BASOPHILS % (AUTO) 1.4 % (0-1); EOSINOPHILS # (AUTO) 0.2 X10'3 (0-0.9); EOSINOPHILS % (AUTO) 4.8 % (0-6); HEMATOCRIT 36.4 % (35.0-45.0); HEMOGLOBIN 12.2 g/dl (12.0-16.0); LYMPHOCYTES # (AUTO) 1.1 X10'3 (1.1-4.8); LYMPHOCYTES % (AUTO) 30.6 % (21-51); MEAN CORPUSCULAR HEMOGLOBIN 33.1 PG (27.0-31.0); MEAN CORPUSCULAR HGB CONC 33.5 g/dL (33.0-36.5); MEAN CORPUSCULAR VOLUME 98.6 FL (78-98); MEAN PLATELET VOLUME 8.9 FL (7.4-10.4); MONOCYTES # (AUTO) 0.6 X10'3 (0-0.9); MONOCYTES % (AUTO) 15.4 % (2-12); NEUTROPHILS # (AUTO) 1.7 X10'3 (1.8-7.7); NEUTROPHILS % (AUTO) 47.8 % (42-75); PLATELET COUNT 164 X10'3 (140-440); RED BLOOD COUNT 3.69 X10'6 (4.20-5.60); RED CELL DISTRIBUTION WIDTH 16.7 % (11.5-14.5); WHITE BLOOD COUNT 3.6 X10'3 (4.5-11.0)
[2021-05-11 07:15] LABS: ALANINE AMINOTRANSFERASE 22 U/L (12-78); ALBUMIN 2.8 G/DL (3.4-5.0); ALKALINE PHOSPHATASE 98 IU/L (46-116); ANION GAP 7 (8-16); ASPARTATE AMINO TRANSFERASE 29 U/L (10-37); BILIRUBIN,TOTAL 0.5 MG/DL (0.1-1.0); BLOOD UREA NITROGEN 15 MG/DL (7-18); BUN/CREATININE RATIO 15.2 (6.6-38.0); CALCIUM 8.7 MG/DL (8.5-10.1); CHLORIDE 107 MMOL/L (99-107); CREATININE 0.99 MG/DL (0.40-0.90); GLUCOSE 74 MG/DL (70-104); MAGNESIUM 1.4 MG/DL (1.5-2.4); SODIUM 144 MMOL/L (135-145); TOTAL CARBON DIOXIDE 29.6 MMOL/L (24-32); TOTAL PROTEIN 5.5 G/DL (6.4-8.2); eGFR 55 ML/MIN
[2021-05-11] MEDS: atorvastatin 20mg tablet PO SCH (07:28)
[2021-05-11] MEDS: pantoprazole 40mg Tablet.DR PO SCH (07:29)
[2021-05-11] MEDS: apixaban 5mg tablet PO SCH ×2 (07:29→20:33)
[2021-05-11] MEDS: levetiracetam 250mg tablet PO SCH ×2 (07:29→20:32)
[2021-05-11] MEDS: cetirizine 10mg tablet PO SCH (07:29)
[2021-05-11] MEDS: cholecalciferol (vitamin D3) 1,000 unit (25mcg) tablet PO SCH (07:29)
[2021-05-11] MEDS: gabapentin 300mg capsule PO SCH ×2 (07:29→20:32)
[2021-05-11] MEDS: multivitamins, therapeutics tablet PO SCH (07:29)
[2021-05-11] MEDS: metolazone 2.5mg tablet PO SCH (07:29)
[2021-05-11] MEDS: vitamin B comp w/Vit. C tab 1 TAB TABLET PO SCH (07:29)
[2021-05-11] MEDS: acetaminophen 325mg tablet PO PRN ×2 (07:30→16:39)
[2021-05-11] MEDS: amiodarone 200mg tablet PO SCH ×3 (07:30→20:32)
[2021-05-11] MEDS: CefTRIAXone/D5W-Rocephin 1gm 50 ML IV SCH (07:30)
[2021-05-11] MEDS: carVEDilol 12.5mg tablet PO SCH ×2 (07:33→20:33)
[2021-05-11] MEDS: K and/or MAG REPLACEMENT MC SCH ×2 (08:00→20:00)
[2021-05-11] MEDS: magnesium Cl slow-release 64mg tablet PO PRN (09:47)
--- NOTE | 2021-05-11 09:47 | NUR ---
Reassessment: Encephalopathy has mostly resolved, though now w/ possible evolving stroke 05/09 per MD note. Pt continues on Heart Healthy diet w/ mostly 100% intake of meals meeting est nutrient needs. Recommend liberalizing to Regular diet given lipid panel WNL. LBM 05/09. No change to recommendations at this time, will continue to monitor. Recommendations: 1) Liberalize to regular diet with physician approval; lipids WNL 2) Routine bowel care 3) Weekly wts Addendum: 05/11/21 at [address] Amended: Links added.
--- NOTE | 2021-05-11 18:42 | NUR ---
Problems reprioritized. Patient report given, questions answered & plan of care reviewed with Jayla PHILLIP.
--- NOTE | 2021-05-11 19:07 | NUR ---
Patient in room PCU 3017. I have received report from PENNIE PHILLIP and had the opportunity to ask questions and assume patient care.
[2021-05-11] MEDS: rifaximin 550mg tablet PO SCH (23:05)
[2021-05-12 02:00] VITALS: BP 115/65
[2021-05-12] MEDS: lactulose 20gm/30ml cup PO SCH ×2 (02:01→08:16)
[2021-05-12] MEDS: magnesium Cl slow-release 64mg tablet PO PRN (02:02)
[2021-05-12 06:00] VITALS: BP 118/74
[2021-05-12 06:08] LABS: BASOPHILS # (AUTO) 0.1 X10'3 (0-0.2); BASOPHILS % (AUTO) 1.3 % (0-1); EOSINOPHILS # (AUTO) 0.2 X10'3 (0-0.9); EOSINOPHILS % (AUTO) 4.4 % (0-6); HEMATOCRIT 37.6 % (35.0-45.0); HEMOGLOBIN 12.6 g/dl (12.0-16.0); LYMPHOCYTES # (AUTO) 1.1 X10'3 (1.1-4.8); LYMPHOCYTES % (AUTO) 29.4 % (21-51); MEAN CORPUSCULAR HEMOGLOBIN 32.8 PG (27.0-31.0); MEAN CORPUSCULAR HGB CONC 33.5 g/dL (33.0-36.5); MEAN CORPUSCULAR VOLUME 98.1 FL (78-98); MEAN PLATELET VOLUME 8.8 FL (7.4-10.4); MONOCYTES # (AUTO) 0.7 X10'3 (0-0.9); MONOCYTES % (AUTO) 16.6 % (2-12); NEUTROPHILS # (AUTO) 1.9 X10'3 (1.8-7.7); NEUTROPHILS % (AUTO) 48.3 % (42-75); PLATELET COUNT 166 X10'3 (140-440); RED BLOOD COUNT 3.83 X10'6 (4.20-5.60); RED CELL DISTRIBUTION WIDTH 16.9 % (11.5-14.5); WHITE BLOOD COUNT 3.9 X10'3 (4.5-11.0)
--- NOTE | 2021-05-12 06:37 | NUR ---
Problems reprioritized. Patient report given, questions answered & plan of care reviewed with Naga PHILLIP.
[2021-05-12 06:57] LABS: ALANINE AMINOTRANSFERASE 21 U/L (12-78); ALBUMIN 2.6 G/DL (3.4-5.0); ALBUMIN/GLOBULIN RATIO 0.7 (1.1-1.5); ALKALINE PHOSPHATASE 96 IU/L (46-116); ANION GAP 7 (8-16); ASPARTATE AMINO TRANSFERASE 29 U/L (10-37); BILIRUBIN,TOTAL 0.5 MG/DL (0.1-1.0); BLOOD UREA NITROGEN 15 MG/DL (7-18); BUN/CREATININE RATIO 15.3 (6.6-38.0); CALCIUM 8.7 MG/DL (8.5-10.1); CHLORIDE 106 MMOL/L (99-107); CREATININE 0.98 MG/DL (0.40-0.90); GLUCOSE 81 MG/DL (70-104); POTASSIUM 3.6 MMOL/L (3.5-5.1); SODIUM 142 MMOL/L (135-145); TOTAL CARBON DIOXIDE 28.7 MMOL/L (24-32); TOTAL PROTEIN 6.3 G/DL (6.4-8.2); eGFR 56 ML/MIN
[2021-05-12 07:24] LABS: TOTAL CELLS COUNTED 100
[2021-05-12 07:26] LABS: ANISOCYTOSIS 1+; PLATELET ESTIMATE NORMAL
[2021-05-12] MEDS ORDERED: amiodarone 200mg tablet PO SCH (08:00)
[2021-05-12] MEDS: CefTRIAXone/D5W-Rocephin 1gm 50 ML IV SCH (08:09)
[2021-05-12] MEDS: levetiracetam 250mg tablet PO SCH (08:13)
[2021-05-12] MEDS: apixaban 5mg tablet PO SCH (08:13)
[2021-05-12] MEDS: carVEDilol 12.5mg tablet PO SCH (08:14)
[2021-05-12] MEDS: metolazone 2.5mg tablet PO SCH (08:14)
[2021-05-12] MEDS: cholecalciferol (vitamin D3) 1,000 unit (25mcg) tablet PO SCH (08:14)
[2021-05-12] MEDS: vitamin B comp w/Vit. C tab 1 TAB TABLET PO SCH (08:14)
[2021-05-12] MEDS: atorvastatin 20mg tablet PO SCH (08:15)
[2021-05-12] MEDS: pantoprazole 40mg Tablet.DR PO SCH (08:15)
[2021-05-12] MEDS: rifaximin 550mg tablet PO SCH (08:15)
[2021-05-12] MEDS: gabapentin 300mg capsule PO SCH (08:15)
[2021-05-12] MEDS: cetirizine 10mg tablet PO SCH (08:15)
[2021-05-12] MEDS: multivitamins, therapeutics tablet PO SCH (08:15)
[2021-05-12] MEDS: HYDROcodone/acetaminophen 10/325mg tab PO PRN (09:59)
[2021-05-12 11:00] VITALS: BP 115/74
--- NOTE | 2021-05-12 15:00 | NUR ---
Patient discharge for other facility to continue treatment. Patient was discharge alert and orient and transported by A
[2021-05-26] MEDS ORDERED: amiodarone 200mg tablet PO SCH (08:00)
== END 2021-05-12 14:34 | DRG 100 ==
LOC: ER 13:12 → ED HOLD 18:33 → PCU 3S 05-03 12:45
PROVIDERS: ADMIT Internal Medicine; ATTEND Family Medicine
PROC: 4A10X4Z Monitoring of Central Nervous Electrical Activity, External Approach (ICD-10-PCS; principal; 2021-05-02)
DX: G40.909 Epilepsy, unspecified, not intractable, without status epilepticus (principal); I63.81 Other cerebral infarction due to occlusion or stenosis of small artery; I48.20 Chronic atrial fibrillation, unspecified; E72.20 Disorder of urea cycle metabolism, unspecified; F05 Delirium due to known physiological condition; I13.0 Hypertensive heart and chronic kidney disease with heart failure and stage 1 through stage 4 chronic kidney disease, or unspecified chronic kidney disease; Z68.42 Body mass index [BMI] 45.0-49.9, adult; E87.0 Hyperosmolality and hypernatremia; N17.9 Acute kidney failure, unspecified; K72.90 Hepatic failure, unspecified without coma; N18.9 Chronic kidney disease, unspecified; E66.01 Morbid (severe) obesity due to excess calories; Z66 Do not resuscitate; F03.90 Unspecified dementia, unspecified severity, without behavioral disturbance, psychotic disturbance, mood disturbance, and anxiety; Z20.822 Contact with and (suspected) exposure to COVID-19; Z96.652 Presence of left artificial knee joint; I50.9 Heart failure, unspecified; K80.20 Calculus of gallbladder without cholecystitis without obstruction; Z79.01 Long term (current) use of anticoagulants; Z86.73 Personal history of transient ischemic attack (TIA), and cerebral infarction without residual deficits; Z95.810 Presence of automatic (implantable) cardiac defibrillator; Z88.5 Allergy status to narcotic agent; Z88.8 Allergy status to other drugs, medicaments and biological substances; Z79.899 Other long term (current) drug therapy; Z86.16 Personal history of COVID-19
CPT/HCPCS: 36415; 70450; 71045; 76700; 80053; 80061; 80305; 81001; 82140; 82948; 83036; 83605; 83735; 83880; 84100; 84132; 84145; 84443; 84484; 85007; 85025; 85610; 87040; 87081; 87088; 87635; 93005; 95816; 97110; 97116; 97162; 97530; 99285; G0378; J0696; J1165; J1650; J1953; J3430; J3490; J7030; J7042; J7050; J7070

== ENCOUNTER 2021-09-02 15:20 | Emergency (ER) | payer MEDICARE, OTHER, MEDICAID ==
[~2021-09-02] VITALS: Ht 170.2 cm; Wt 100.0 kg
[~2021-09-02 15:20] MED LIST changes: +AMIO200T27 PO; +ATOR20TA66 PO; +CARV25TA2 PO; +CELE-85 PO; +CETI-90 PO; +CHOL500044 PO; +GABA600T13 PO; +METH-797 PO; +METO5TAB7 PO; +MULT-1085 PO; -NO HOME MEDS; +PANT40TA54 PO; +POTA8TAB69 PO; +VITA-268 PO; +WARF-55 PO
[2021-09-02] MEDS ORDERED: ketamine 50 mg/ml 10ml vial IV ONE (16:20)
[2021-09-02] MEDS ORDERED: ondansetron/PF 4mg/2ml inj IV ONE (16:20)
[2021-09-02] MEDS ORDERED: ketamine 50 mg/ml 10ml vial IM ONE (17:35)
[2021-09-02] MEDS ORDERED: CEPH-585 PO (18:31)
[2021-09-02 21:56] VITALS: BP 130/83
== END 2021-09-02 22:23 | disposition home or self-care (01) ==
LOC: ER 15:20
DX: S52.501A Unspecified fracture of the lower end of right radius, initial encounter for closed fracture (principal); S52.602A Unspecified fracture of lower end of left ulna, initial encounter for closed fracture; S92.324A Nondisplaced fracture of second metatarsal bone, right foot, initial encounter for closed fracture; F03.90 Unspecified dementia, unspecified severity, without behavioral disturbance, psychotic disturbance, mood disturbance, and anxiety; I48.91 Unspecified atrial fibrillation; Z72.89 Other problems related to lifestyle; Z79.01 Long term (current) use of anticoagulants; Z79.899 Other long term (current) drug therapy; Z79.2 Long term (current) use of antibiotics; Z88.8 Allergy status to other drugs, medicaments and biological substances; W19.XXXA Unspecified fall, initial encounter; Z91.81 History of falling; Y93.89 Activity, other specified; Y92.89 Other specified places as the place of occurrence of the external cause; Y99.8 Other external cause status
CPT/HCPCS: 25605; 73090; 73100; 94799; 99152; 99153; 99285; J3490; J7030; 94760; 96372; A4565; A4620; A6449